=== PATIENT | female | born 1960 | race Caucasian/White ===

== ENCOUNTER → 2019-03-12 13:06 | Outpatient (BNVA) | payer OTHER, SELFPAY | PROVIDERS: Family Provider Family Medicine; PCP Family Medicine; Visit Provider Internal Medicine Rheumatology | DX: M06.09 Rheumatoid arthritis without rheumatoid factor, multiple sites (principal); Z79.52 Long term (current) use of systemic steroids; E11.9 Type 2 diabetes mellitus without complications; Z79.84 Long term (current) use of oral hypoglycemic drugs | CPT/HCPCS: 99214 ==

== ENCOUNTER → 2019-09-19 17:24 | Outpatient (BNVA) | payer OTHER, SELFPAY | PROVIDERS: Family Provider Family Medicine; PCP Family Medicine; Visit Provider Nurse Practitioner | DX: Z11.59 Encounter for screening for other viral diseases (principal); B34.9 Viral infection, unspecified; Z68.34 Body mass index [BMI] 34.0-34.9, adult | CPT/HCPCS: 87635 ==

== ENCOUNTER 2019-12-03 13:47 | Outpatient (CLI) | payer OTHER, SELFPAY ==
--- NOTE | 2019-12-03 14:22 | MM_ITS ---
WS: [id number] BILATERAL DIGITAL SCREENING MAMMOGRAPHY WITH CAD CLINICAL INFORMATION: SCREENING HISTORY: Screening mammogram. No current complaints. COMPARISON: 2018 TECHNIQUE: Bilateral CC and MLO views. FINDINGS: The breasts are composed of heterogeneous fibroglandular density tissue, which can limit the detectio n of small underlying mass lesions. No suspicious mass, asymmetry, calcifications, or architectural d istortion. No evidence of malignancy. A few tiny punctate calcifications. MM/[place] [id number] IMPRESSION: BI-RADS: 2-Benign FOLLOW UP: 1 Year Follow-up Recommend return to annual screening mammography.
== END 2019-12-03 13:48 | disposition home or self-care (01) ==
LOC: RADSHAW 13:52
PROVIDERS: PCP Family Medicine; Visit Provider Family Medicine
DX: Z12.31 Encounter for screening mammogram for malignant neoplasm of breast (principal)
CPT/HCPCS: 77067

== ENCOUNTER 2020-02-03 15:47 | Outpatient (CLI) | payer OTHER, SELFPAY ==
--- NOTE | 2020-02-03 15:58 | XR_ITS ---
WS: [id number] Bone mineral density performed on a [employer], 02/03/2020 Clinical data: [facility] SYSTEMIC STEROID USE, OVARIAN FAILURE COMPARISON STUDY: None. Findings: The first 4 lumbar vertebral bodies demonstrated the bone mineral density of 1.305 g/cm2 for a young adult T score of 1.0. Measurement of the left hip reveals a bone mineral density of 1.211 g/cm2 with a young adult T score of 1.6. Measurement of the right hip reveals the bone mineral density of 1.156 g/cm2 for young adult T score of 1.2. XR/XR DEXA axial skeleton* [id number] Impression: The bone mineral density of the lumbar spine and both hips is normal.
== END 2020-02-03 15:48 | disposition home or self-care (01) ==
LOC: RADWPI 15:50
PROVIDERS: PCP Family Medicine; Visit Provider Internal Medicine
DX: Z79.52 Long term (current) use of systemic steroids (principal); E28.39 Other primary ovarian failure
CPT/HCPCS: 77080

== ENCOUNTER 2020-06-26 14:46 | Outpatient (CLI) | payer OTHER, SELFPAY ==
--- NOTE | 2020-06-26 14:53 | XRR_ITS ---
PROCEDURE INFORMATION: Exam: XR Right Foot Exam date and time: 06/26/2020 3:19 PM Age: 60 years old Clinical indication: Foot; Right; Patient HX: No trauma pain at base of 2nd mtp joint since Friday; Additional info: R foot pain/attn: Base of 2nd mtp joint TECHNIQUE: Imaging protocol: XR Right foot. Views: 1 or 2 views. COMPARISON: CR Foot 3 views, RIGHT* [id number] 10/21/2016 3:45 PM FINDINGS: Bones/joints: Mild great toe bunion deformity with metatarsus varus and hallux valgus. Soft tissues: Soft tissue calcification in the region of the plantar fascia. XR/XR foot RT 2V [id number] IMPRESSION: 1. Mild great toe bunion deformity with metatarsus varus and hallux valgus. 2. Soft tissue calcification in the region of the plantar fascia.
== END 2020-06-26 14:47 | disposition home or self-care (01) ==
PROVIDERS: PCP Family Medicine; Visit Provider Family Medicine
DX: M79.671 Pain in right foot (principal); M21.611 Bunion of right foot
CPT/HCPCS: 73620

== ENCOUNTER → 2020-07-06 11:39 | Outpatient (BNVA) | payer OTHER, SELFPAY | PROVIDERS: PCP Family Medicine; Visit Provider Podiatrist Foot & Ankle Surgery | DX: E11.622 Type 2 diabetes mellitus with other skin ulcer; M79.673 Pain in unspecified foot; L97.521 Non-pressure chronic ulcer of other part of left foot limited to breakdown of skin; M20.41 Other hammer toe(s) (acquired), right foot; M20.42 Other hammer toe(s) (acquired), left foot | CPT/HCPCS: 73630 ==

== ENCOUNTER → 2020-07-21 09:02 | Outpatient (BNVA) | payer OTHER, SELFPAY | PROVIDERS: PCP Family Medicine; Visit Provider Podiatrist Foot & Ankle Surgery | DX: M79.671 Pain in right foot (principal); M21.611 Bunion of right foot; E11.622 Type 2 diabetes mellitus with other skin ulcer; L97.521 Non-pressure chronic ulcer of other part of left foot limited to breakdown of skin; M20.41 Other hammer toe(s) (acquired), right foot; M20.42 Other hammer toe(s) (acquired), left foot | CPT/HCPCS: 73630 ==

== ENCOUNTER → 2020-09-08 14:19 | Outpatient (BNVA) | payer OTHER, SELFPAY | PROVIDERS: PCP Family Medicine; Visit Provider Podiatrist Foot & Ankle Surgery | DX: M20.41 Other hammer toe(s) (acquired), right foot (principal); M20.42 Other hammer toe(s) (acquired), left foot; E11.622 Type 2 diabetes mellitus with other skin ulcer | CPT/HCPCS: 73630 ==

== ENCOUNTER 2020-12-08 11:08 | Outpatient (CLI) | payer OTHER, SELFPAY ==
--- NOTE | 2020-12-08 11:00 | MM_ITS ---
WS: [id number] BILATERAL DIGITAL SCREENING MAMMOGRAPHY WITH CAD CLINICAL INFORMATION: Z12.39 - Encounter for other screening for malignant neop.. HISTORY: Screening mammogram. No current complaints. COMPARISON: December 03, 2019 TECHNIQUE: Bilateral CC and MLO views. FINDINGS: The breasts are composed of heterogeneous fibroglandular density tissue, which can limit the detectio n of small underlying mass lesions. Ovoid nodular density mid left breast best seen on the cc view me asuring 6 mm. Recommend further evaluation with spot compression views and ultrasound. Right breast is unchanged. MM/[place] [id number] IMPRESSION: BI-RADS: 0-Incomplete: Need additional imaging evaluation FOLLOW UP: Need Additional Imaging Recommend left breast diagnostic mammography and ultrasound.
== END 2020-12-08 11:09 | disposition home or self-care (01) ==
LOC: RADSHAW 11:11
PROVIDERS: PCP Family Medicine; Visit Provider Nurse Practitioner Women's Health
DX: Z12.31 Encounter for screening mammogram for malignant neoplasm of breast (principal)
CPT/HCPCS: 77067

== ENCOUNTER → 2021-02-12 16:35 | Outpatient (BNVA) | payer OTHER, SELFPAY | PROVIDERS: PCP Family Medicine; Visit Provider Podiatrist Foot & Ankle Surgery | DX: M20.41 Other hammer toe(s) (acquired), right foot (principal); M20.42 Other hammer toe(s) (acquired), left foot; M21.619 Bunion of unspecified foot | CPT/HCPCS: 73630; 87635 ==

== ENCOUNTER 2021-02-16 06:31 | Day surgery (SDC) | payer OTHER, SELFPAY ==
[2021-02-15 12:26] VITALS: BMI 36.3
[2021-02-16] VITALS (10 sets, daily range): BP systolic 106–159; BP diastolic 57–81; PULSE 59–91; RESP 14–17; TEMP 36.2–36.6; O2SAT 94–98
--- NOTE | 2021-02-16 | SCC_ITS ---
Procedure Done: Right bunionectomy and Second Hammertoe Correction [address] and [id number] 2 seconds of fluoroscopic guidance, for a cumulative dose of 0.03 mGy, was provided to Dr. Hall by the radiology department. C-arm images of the RIGHT foot were saved for the patient's permanent record. [facility]
[2021-02-16] MEDS: sodium chloride 0.9% 1,000 ML 30 ML IV (07:08)
[2021-02-16 07:09] LABS: Glucose Point of Care 118 mg/dL (70-110)
--- NOTE | 2021-02-16 07:42 | ANES.PREANE2 ---
Pre-Anesthetic Assessment Pre-Anesthetic Assessment: Height/Weight: Height 1.68 m Weight 102.058 kg Temp Pulse Resp BP Pulse Ox 97.6 F 66 17 134/80 98 02/16/21 06:43 02/16/21 06:43 02/16/21 06:43 02/16/21 06:43 02/16/21 06:43 Preop Diagnosis: Right hammertoe and bunion Proposed Procedure: Operation Date: 02/16/21 07:55 Proposed Procedures p Right Second Hammertoe Correction 63834 M20.41 45612 M21.611(Right) - Marshall Hall DPM s With or Without Sesamoidectomy(Right) - Marshall Hall DPM s Hallux Valgus Bunionectomy(Right) - LEORA Gonzalez Metatarsal Osteotomy(Right) - Marshall Hall DPM Was Beta Aleksander taken within 24 hours: N/A Was Clonidine taken within 24 hours: N/A Last intake: Intake Last Liquid Date 02/15/21 Last Liquid Time 21:00 Last Solid Date 02/16/21 Last Solid Time 21:00 Social: Social History: No alcohol and No tobacco Exam: Pre-Anes Outpt Exam: alert, oriented x 3, clear to auscultation bilaterally and regular rate & rhythm Airway: Submandibular: WNL Cervical ROM: WNL MP: 2 Dentition: Full Pulmonary: Pulmonary: Sleep apnea CV/HEM: CV/HEM: HTN Metabolic: Metabolic: DM and Morbid obesity Musc/skel: Musc/skel: RA Anesthetic Plan: ASA status: 3 Anesthesia: Choice Risk of > 500 ml blood loss (7ml/kg in children): No Meds/Allergies Current Medications: Current Medications Generic Name Dose Route Start Last Admin Trade Name Freq PRN Reason Stop Dose Admin Sodium Chloride 1,000 mls @ 30 ml s/hr 02/16/21 06:45 02/16/21 07:08 Sodium Chloride 0.9% IV 02/17/21 06:44 30 mls/hr .Q24H RICHARD Administration PFSH Anesthesia PFSH: Medical History Diabetes mellitus type 2, controlled 5.6% A1c; [place] History of 2019 novel coronavirus disease (COVID-19) (~09/2019) Peripheral neuropathy Seronegative rheumatoid arthritis of multiple sites Sleep apnea Surgical History H/O foot surgery H/O: hysterectomy (~1991) Anterior and Posterior vaginal repair with Hysterectomy. Preformed [facility] Dr. Wallace at [facility] in [place], [place] History of bladder surgery (~2011) Performed by Dr. Kenrick Dolan (Bladder sling) Dr. Rodriguez performed removed gallbladder Hx of carpal tunnel repair Hx of cholecystectomy (~2011) Hx of vaginal surgery (~2013) Vaginal reconstruction, Preformed by Dr. Kelly at [facility] in [place], [place]. Skin graft from stomach to reconstruct vagina Status post colonoscopy with polypectomy Family History Father Hypertension Family/Other Diabetes Paternal aunt Cancer maternal aunts and cousin with breast cancer Maternal cousins with colon cancer Denies family history of CAD (coronary artery disease) Clotting disorder Dementia Hyperlipidemia Psychiatric illness Chronic kidney disease (CKD) Suicide Anesthesia complication Bleeding disorder Family history of premature coronary artery disease Lung disease Stroke Social History Alcohol intake: current Alcohol intake frequency: holidays/special occasions only Marital status: Number of children: 2 History of recent travel: No Additional social history: - Tobacco use: Former; socially smoked as teenager Alcohol use: Rare Drug use: Denies Data Anesthesia Other Labs: Laboratory Results - last 48 hr 02/16/21 07:05 POC Glucose 118 H Cardiac Studies: No Data to Display
--- NOTE | 2021-02-16 08:46 | W.PM.OPSUD ---
Surgery/Procedure H&P Update DATE OF PROCEDURE: February 16, 2021 DATE H&P PERFORMED: 02/12/21 H&P UPDATE INFORMATION: I have reviewed H&P completed within last 30 days, I have examined patient prior to procedure, No changes to prior documentation and H&P is in [facility] EMR on date indicated PREOP DIAGNOSIS: Right hammertoe and bunion PLANNED PROCEDURE: Operation Date: 02/16/21 07:55 Proposed Procedures p Right Second Hammertoe Correction 22517 M20.41 53295 M21.611(Right) - Marshall Hall DPM s With or Without Sesamoidectomy(Right) - LEORA Gonzalez Hallux Valgus Bunionectomy(Right) - LEORA Gonzalez Metatarsal Osteotomy(Right) - Marshall Hall DPM
[2021-02-16] MEDS: lidocaine 1% INJ 20 mL 15 ML XX (09:36)
--- NOTE | 2021-02-16 10:21 | P.OP_ITS ---
Operative Report Date of procedure: February 16, 2021 Pre-op Diagnosis: Right hammertoe and bunion Post-op diagnosis: same Post-op Findings: Same Procedure Done: Right bunionectomy and Second Hammertoe Correction 13384 and [id number] Implants: [place] 28 2.75 mm hammer tube 0 degree, [place] 28 3 mm headed screw by 26, 3-0 Vicryl, 4-0 Vicryl, 4-0 nylon Specimens removed/disposition: noned Pathology: none sent Surgeon: Marshall Hall D.P.M. Oceanographer Geological: Shereen Anesthesia: MAC Estimated blood loss: 5 Tourniquet time: 50 IV fluids: 0 Urine output: 0 Complications: none Condition: stable Disposition: PACU Brief History: Patient requesting hammertoe correction and bunionectomy to her right foot. Her second hammertoe is nonreducible and is no longer fitting even in diabetic shoes with extra-depth as the knuckle is very proud, has had history of infection and skin breakdown and need for antibiotic therapy as well as wound care. She is wishing to have this corrected to potentially prevent future wounds also complains of rubbing and irritation at the bunion deformity with wide accommodative shoes like that this correct as well as it has pain on a regular basis, has pain daily with everyday activities. Risks include pain, bleeding, numbness, infection, failure, hardware rotation, delayed union, malunion, nonunion, need for further surgical intervention. Also risk for deep vein thrombosis, pulmonary embolism, heart attack, stroke and . Procedure: Under mild sedation the patient was brought to the operating room and remained on the gurney in supine position. A timeout was performed. Anesthesia was then administered by the anesthesia service. Local anesthetic injected by myself consisting of 30 cc of one-to-one mixture 1% lidocaine and 0.5% Marcaine plain in a right Rondon block and second ray block fashion. Well-padded pneumatic tourniquet applied to the right ankle. Right lower extremity was then scrubbed, prepped and draped utilizing normal aseptic technique. Right foot was exsanguinated with an Esmarch bandage and a tourniquet inflated to 250 mmHg. Attention was directed to the dorsal medial aspect of the right first metatar sophalangeal joint where a linear longitudinal incision was made with a #15 blade medial and parallel to the extensor houses longus tendon. Dissection was carried down to the joint capsule utilizing combination of blunt and sharp technique. Care was taken to retract and preserve neurovascular and tendinous structures. All bleeders were ligated and cauterized as necessary. Linear capsulotomy was performed in the dorsal medial eminence of the first metatarsal head was transected followed by a chevron type osteotomy with apex pointed distally the head of the first metatarsal was shifted laterally in a more anatomically correct position and fixated utilizing a [place] 28 3 mm headed screw with excellent bony apposition and compression noted. Remaining medial shelf was transected and passed from operative field as well as all rough edges being smoothed. Range of motion was smooth at the first metatarsophalangeal joint and improved position appreciated. Lateral release was then performed. Incision was flushed with saline solution, medial capsule was debulked and closed with 3-0 Vicryl, subcutaneous tissue closed with 4-0 Vicryl and skin closed with 4-0 nylon. Attention was then directed to the right second toe where a linear longitudinal incision was made directly over the proximal interphalangeal joint with a #15 blade the extensor tendon was then transected dissection was carried down to the joint utilizing care to protect neurovascular structures all bleeders were ligated and cauterized as necessary. Transverse capsulotomy was performed in the head of the proximal phalanx and the base of the middle phalanx were transected utilizing a sagittal saw. Incision was flushed with statin solution followed by intramedullary fixation utilizing a hammer tube 2.75 mm x 0 degrees with excellent bony apposition and compression noted and alignment of the rectus of the second toe. Incision was flushed with saline solution. Extensor tendon reapproximated utilizing 4-0 Vicryl and skin closed with 4-0 nylon. Exparel 10 mL expanded with an additional 10 mL of Marcaine was injected at the operative site per counter stitcher recommendation and technique. Incisions were then dressed with Adaptic, sterile 4 x 4, Kerlix and Delonte wrap. Cam boot was then applied and tourniquet was deflated with the right lower extremity. A prompt hyperemic response was noted to the distal digits of the right foot. Patient tolerated the procedure and anesthesia well and was transferred to the PACU with vital signs stable and vascular status intact. Following a period of postoperative monitoring she will be discharged home.
--- NOTE | 2021-02-16 10:26 | XR_ITS ---
WS: [id number] XR foot RT min 3V* [id number] REASON FOR EXAM: post op FINDINGS: Osteotomy of the distal first metatarsal with screw fixation. Arthrodesis of the PIP joint of the second toe. Surgical appliances and associated bone structure in proper position and alignment. No other interval change compared to the preoperative examination of 02/12/2021. XR/XR foot RT min 3V* [id number] IMPRESSION: Postoperative right foot as above.
--- NOTE | 2021-02-16 10:38 | SUR.PHASEI ---
x ray done .patient denies pain.
[2021-02-16] MEDS: HYDROcodone-acetaminophen 10-325 mg Tablet 1 TAB PO (11:18)
--- NOTE | 2021-02-16 13:17 | ANE.PACU2 ---
Inpatient post-anesthesia follow up: Airway intact: Yes Vital signs: Temperature 97.6 F Pulse Rate 64 Respiratory Rate 16 Blood Pressure 159/81 Pulse Oximetry 95 Oxygen Delivery Me thod Room Air Oxygen Flow Rate Fraction of Inspir ed Oxygen Hydration adequate: Yes Nausea and vomiting: No Pain level: 1 Mental status: Baseline
== END 2021-02-16 11:49 | disposition home or self-care (01) ==
PROVIDERS: PCP Family Medicine; Visit Provider Podiatrist Foot & Ankle Surgery
PROC: (CPT 28285; principal; 2021-02-16 07:55)
PROC: (CPT 28296; 2021-02-16 07:55)
DX: M20.41 Other hammer toe(s) (acquired), right foot (principal); M21.611 Bunion of right foot; I10 Essential (primary) hypertension; E66.01 Morbid (severe) obesity due to excess calories; E11.42 Type 2 diabetes mellitus with diabetic polyneuropathy; Z68.36 Body mass index [BMI] 36.0-36.9, adult; M06.9 Rheumatoid arthritis, unspecified; G47.30 Sleep apnea, unspecified; Z79.82 Long term (current) use of aspirin
CPT/HCPCS: 28285; 28296; 36416; 73630; 76000; 82962; 96365; C1713; J0690; J2704; J3010; J3490; J7030

== ENCOUNTER → 2021-02-28 13:58 | Outpatient (BNVA) | payer OTHER, SELFPAY | PROVIDERS: PCP Family Medicine; Visit Provider Podiatrist Foot & Ankle Surgery | DX: Z98.890 Other specified postprocedural states (principal) | CPT/HCPCS: 73630 ==

== ENCOUNTER 2021-02-28 15:37 | Outpatient (CLI) | payer OTHER, SELFPAY | END 2021-02-28 15:38 | disposition home or self-care (01) | LOC: SPT 15:40 | PROVIDERS: PCP Family Medicine; Visit Provider Podiatrist Foot & Ankle Surgery | DX: Z98.890 Other specified postprocedural states (principal) | CPT/HCPCS: 97760; L3100 ==

== ENCOUNTER → 2021-03-16 11:47 | Outpatient (BNVA) | payer OTHER, SELFPAY | PROVIDERS: PCP Family Medicine; Visit Provider Podiatrist Foot & Ankle Surgery | DX: Z98.890 Other specified postprocedural states (principal) | CPT/HCPCS: 73630 ==

== ENCOUNTER → 2021-03-30 14:16 | Outpatient (BNVA) | payer OTHER, SELFPAY | PROVIDERS: PCP Family Medicine; Visit Provider Podiatrist Foot & Ankle Surgery | DX: Z98.890 Other specified postprocedural states (principal) | CPT/HCPCS: 73630 ==

== ENCOUNTER → 2021-05-18 15:37 | Outpatient (BNVA) | payer OTHER, SELFPAY | PROVIDERS: PCP Family Medicine; Visit Provider Podiatrist Foot & Ankle Surgery | DX: Z98.890 Other specified postprocedural states (principal) | CPT/HCPCS: 73630 ==

== ENCOUNTER → 2021-07-19 16:03 | Outpatient (BNVA) | payer OTHER, SELFPAY | PROVIDERS: PCP Family Medicine; Visit Provider Podiatrist Foot & Ankle Surgery | DX: Z98.890 Other specified postprocedural states (principal) | CPT/HCPCS: 73630 ==

== ENCOUNTER 2021-08-23 13:48 | Outpatient (CLI) | payer OTHER, SELFPAY ==
--- NOTE | 2021-08-23 14:03 | MM_ITS ---
WS: [id number] LEFT 3D TOMOSYNTHESIS DIGITAL MAMMOGRAPHY WITH CAD CLINICAL INFORMATION: ABNORMAL MAMMOGRAM COMPARISON: Outside examination January 12, 2021 and prior examination December 08, 2020 and 0 TECHNIQUE: 3 views of the left breast were obtained. FINDINGS: The left breast is composed of heterogeneous fibroglandular density tissue, which can limit the detec tion of small underlying mass lesions. Scattered incidental punctate calcifications. Again seen is th e 6 mm ovoid nodular density mid depth LEFT breast best seen on the cc view. This is similar in appea lashanda to December 08, 2020. Ultrasound is pending. ULTRASOUND BREAST LEFT TECHNIQUE: Ultrasound left breast focused area of concern. CLINICAL INFORMATION: ABNORMAL MAMMOGRAM COMPARISON: January 12, 2021 FINDINGS: Ultrasound LEFT breast in the area of concern at the 200 and 3:00 position. There is a hypoechoic ovo id nodule measuring 9.1 x 5.1 x 10 mm which likely corresponds to the mammographic findings. Small am ount of internal vascularity. This lesion demonstrates low level internal echogenicity suspicious for a solid lesion. Recommend further evaluation with ultrasound-guided biopsy. MM/[place] [id number] IMPRESSION: BI-RADS: 4-Suspicious Finding-Biopsy Should Be Considered FOLLOW UP: US Guided Biopsy Recommended RECOMMEND ULTRASOUND-GUIDED BIOPSY OF THE LEFT BREAST LESION.
== END 2021-08-23 13:49 | disposition home or self-care (01) ==
LOC: RAD 13:50
PROVIDERS: PCP Family Medicine; Visit Provider Surgery
DX: R92.8 Other abnormal and inconclusive findings on diagnostic imaging of breast (principal); R92.1 Mammographic calcification found on diagnostic imaging of breast
CPT/HCPCS: 76642; 77061

== ENCOUNTER 2021-09-13 07:48 | Outpatient (CLI) | payer OTHER, SELFPAY ==
--- NOTE | 2021-09-13 08:04 | US_ITS ---
WS: [id number] ULTRASOUND-GUIDED LEFT BREAST BIOPSY CLINICAL INFORMATION: R92.8 - Other abnormal and inconclusive findings on diagn... FINDINGS: The procedure including risks, benefits, and complications were discussed with the patient who agreed to proceed. Using sterile technique patient was prepped and draped in the usual sterile fashion. Aft er 1% lidocaine utilizing real-time ultrasound guidance 5 14-gauge cores were obtained of the LEFT br east lesion at the 3 o'clock position. Subsequently a titanium clip was placed in the biopsy cavity. No immediate complications. Pathology demonstrates A. Breast, left breast mass , ultrasound-guided biopsy: - Benign fibrocystic disease with apocrine metaplasia and stromal sclerosis. - No malignancy identified. US/[place] [id number] IMPRESSION: 1. Uncomplicated ultrasound-guided LEFT breast biopsy. 2. The pathology demonstrates benign fibrocystic disease. No malignancy identi fied. BI-RADS: 2-Benign FOLLOW UP: 1 Year Follow-up
== END 2021-09-13 07:49 | disposition home or self-care (01) ==
PROVIDERS: PCP Family Medicine; Visit Provider Nurse Practitioner Women's Health
DX: R92.8 Other abnormal and inconclusive findings on diagnostic imaging of breast (principal); N60.12 Diffuse cystic mastopathy of left breast
CPT/HCPCS: 19083; 88305

== ENCOUNTER → 2022-02-07 14:54 | Outpatient (BNVA) | payer OTHER, SELFPAY | PROVIDERS: PCP Family Medicine; Visit Provider Family Medicine | DX: L02.91 Cutaneous abscess, unspecified (principal) | CPT/HCPCS: 87070; 87075; 87205 ==

== ENCOUNTER → 2022-07-11 13:53 | Outpatient (BNVA) | payer OTHER, SELFPAY | PROVIDERS: PCP Family Medicine; Visit Provider Podiatrist Foot & Ankle Surgery | DX: M20.41 Other hammer toe(s) (acquired), right foot (principal); M20.42 Other hammer toe(s) (acquired), left foot; E11.8 Type 2 diabetes mellitus with unspecified complications | CPT/HCPCS: 99213 ==

== ENCOUNTER 2022-07-26 08:12 | Day surgery (SDC) | payer OTHER, SELFPAY ==
[2022-07-25 08:29] VITALS: BMI 37.1
[2022-07-26 09:08] VITALS: BP 123/61; PULSE 62; RESP 16; TEMP 36.1; O2SAT 98
[2022-07-26] MEDS: sodium chloride 0.9% 1,000 ML 30 ML IV (09:15)
[2022-07-26 09:23] LABS: Glucose Point of Care 150 mg/dL (70-110)
--- NOTE | 2022-07-26 10:52 | ANES.PREANE2 ---
Pre-Anesthetic Assessment Height/Weight: Height 1.68 m Weight 104.326 kg Temp Pulse Resp BP Pulse Ox O2 Del Method 97.0 F L 62 16 123/61 98 Room Air 07/26/22 09:08 07/26/22 09:08 07/26/22 09:08 07/26/22 09:08 07/26/22 09:08 07/26/22 09:08 Preop Diagnosis: Screening Operation Date: 07/26/22 10:15 Proposed Procedures p 22469 Colon Z12.11(Not Applicable) - Leandro Kent DO Familial anesthetic complications: Woke up during hysterectomy and catrpal tunnel Was Beta Aleksander taken within 24 hours: N/A Was Clonidine taken within 24 hours: N/A Last intake: Intake Last Liquid Date 07/25/22 Last Liquid Time 22:00 Last Solid Date 07/24/22 Last Solid Time 18:00 Social No alcohol and No tobacco Exam alert, oriented x 3, clear to auscultation bilaterally and regular rate & rhythm Airway Submandibular: within normal limits Cervical ROM: within normal limits Mallampati: Class II Dentition: chipped History/ROS No significant history except as noted Pulmonary Sleep Apnea CV/HEM Murmur and None reported None reported Hepatic None reported GI Gastroesophageal Reflux Disease (none this am) Metabolic Diabetes Mellitus and Morbid Obesity [facility] [place] Rheumatoid Arthritis Neuropsych Anxiety and Neuropathy Anesthetic Plan ASA status: 3 Anesthesia: Anesthesia Evaluation, General and MAC Risk of > 500 ml blood loss (7ml/kg in children): No Medications/Allergies Home Medications Medication Instructions Recorded Confirmed Last Taken Type cetirizine 10 mg tablet (Zyrtec) 10 mg PO DAILY 03/12/19 07/26/22 07/25/22 History mcynmvnb-ejq-srdq-FA-Ca carb-vit K 1 tab PO DAILY 03/12/19 07/26/22 02/15/21 10:00 History 18 mg iron-400 mcg-500 mg tablet (Women's Multivitamin) Diabetic Shoes #1 ea 03/16/19 07/25/22 07/25/22 Rx folic acid 1 mg tablet 1 mg PO DAILY #90 tabs 07/06/19 07/26/22 07/25/22 Rx aspirin 81 mg tablet,delayed 81 mg PO .three times weeks 10/29/19 07/26/22 02/14/21 History release (Adult Low Dose Aspirin) Diabetic shoes with 3 pairs of #1 ea 07/06/20 07/25/22 07/25/22 Rx inserts upadacitinib 15 mg tablet,extended 15 mg PO DAILY 11/03/20 07/26/22 07/25/22 History release 24 hr (Rinvoq) methotrexate sodium 2.5 mg tablet 20 mg PO .Q7days 05/18/21 07/26/22 07/24/22 History furosemide 40 mg tablet (Lasix) 40 mg PO PRN PRN swelling 09/07/21 07/26/22 07/23/22 History potassium chloride 10 mEq 10 meq PO PRN PRN with lasix 09/07/21 07/26/22 07/23/22 History tablet,extended release triamterene 37.5 1 tab PO DAILY 09/07/21 07/26/22 07/25/22 History mg-hydrochlorothiazide 25 mg tablet estradiol 0.01% (0.1 mg/gram) 1 g vaginal .three times a week 11/09/21 07/26/22 Unknown Rx vaginal cream (Estrace) #127.5 grams estradiol 1 mg tablet 1.5 mg PO DAILY #135 tabs 11/09/21 07/26/22 07/25/22 Rx glimepiride 4 mg tablet 4 mg PO BID #180 tabs 12/07/21 07/26/22 07/25/22 Rx gabapentin 100 mg capsule 100 mg PO TID PRN neuropathy pain 04/10/22 07/26/22 Unknown Rx 30 days #90 caps buspirone 30 mg tablet 30 mg PO BID #180 tabs 05/23/22 07/26/22 07/26/22 Rx Saccharomyces boulardii [Daily 1 cap PO DAILY 06/20/22 07/26/22 07/25/22 History Probiotic (S. boulardii)] metoclopramide HCl 10 mg tablet 10 mg PO BID 06/20/22 07/26/22 07/25/22 History Allergies Allergy/AdvReac Type Severity Reaction Status Date / Time codeine Allergy nausea Verified 07/26/22 09:03 metformin Allergy severe Verified 07/26/22 09:03 stomach issues pioglitazone [From Actos] Allergy swelling/ Verified 07/26/22 09:03 fatigue canagliflozin [From Invokana] AdvReac Severe yeast Verified 07/26/22 09:03 infection Current Medications Generic Name Dose Route Start Last Admin Trade Name Freq PRN Reason Stop Dose Admin Sodium Chloride 1,000 mls @ 30 mls/hr 07/26/22 08:30 07/26/22 09:15 Sodium Chloride 0.9% IV 07/27/22 08:29 30 mls/hr .Q24H RICHARD Administration PFSH Anesthesia Medical History Anxiety Diabetes mellitus type 2, controlled 6.5% A1c; [place] Edema GERD (gastroesophageal reflux disease) Heart murmur History of 2019 novel coronavirus disease (COVID-19) (~09/2019) Hyperlipemia Hypertension Neuropathy No pertinent past medical history neghx: htn,thyroid,dvt/pe PCP: Dr. Alberto Peripheral neuropathy Seronegative rheumatoid arthritis of multiple sites Sleep apnea Surgical History H/O foot surgery H/O: hysterectomy (~1991) Anterior and Posterior vaginal repair with Hysterectomy. Preformed by Dr. Wallace at [facility] in [place], [place]. History of bladder surgery (~2011) Performed by Dr. Kenrick Dolan (Bladder sling) Dr. Rodriguez performed removed gallbladder History of bunionectomy (~2020) R foot, hammer toe reopair Hx of carpal tunnel repair Hx of cholecystectomy (~2011) Hx of vaginal surgery (~2013) Vaginal reconstruction, Preformed by Dr. Kelly at [facility] in [place], [place]. Skin graft from stomach to reconstruct vagina Status post colonoscopy with polypectomy Family History Father Hypertension Family/Other Diabetes Paternal aunt Breast cancer Maternal Aunt x1--- dx age unknown Maternal cousin-- dx age 30's Colon cancer Maternal cousin dx age unknown Other Cancer Denies family history of Ovarian cancer Hyperlipidemia Uterine cancer Stroke Social History Smoking and tobacco status: former smoker Substance/Drug Use: never Data Anesthesia Cardiac Studies: No Data to Display
--- NOTE | 2022-07-26 10:56 | P.HP_ITS ---
Providers/Chief Complaint Primary Care Provider: Tyler Alberto MD Chief Complaint: Z12.11 History of Present Illness Felecia Molina is a 62 year old female here for screening colonoscopy. Her last colonoscopy was in 2009 and no polyps were seen at that time. She reports that she has irritable bowel syndrome and sometimes can alternate from diarrhea to constipation. Otherwise she denies any family history of colon cancer, ab dominal pain, nausea, emesis, hematochezia and/or melena. Medications/Allergies Home Medications Medication Instructions Recorded Confirmed Last Taken Type cetirizine 10 mg tablet (Zyrtec) 10 mg PO DAILY 03/12/19 07/26/22 07/25/22 History bdewxodp-[id number]-fgyl-FA-Ca carb-vit K 1 tab PO DAILY 03/12/19 07/26/22 02/15/21 10:00 History 18 mg iron-400 mcg-500 mg tablet (Women's Multivitamin) Diabetic Shoes #1 ea 03/16/19 07/25/22 07/25/22 Rx folic acid 1 mg tablet 1 mg PO DAILY #90 tabs 07/06/19 07/26/22 07/25/22 Rx aspirin 81 mg tablet,delayed 81 mg PO .three times weeks 10/29/19 07/26/22 02/14/21 History release (Adult Low Dose Aspirin) Diabetic shoes with 3 pairs of #1 ea 07/06/20 07/25/22 07/25/22 Rx inserts upadacitinib 15 mg tablet,extended 15 mg PO DAILY 11/03/20 07/26/22 07/25/22 History release 24 hr (Rinvoq) methotrexate sodium 2.5 mg tablet 20 mg PO .Q7days 05/18/21 07/26/22 07/24/22 History furosemide 40 mg tablet (Lasix) 40 mg PO PRN PRN swelling 09/07/21 07/26/22 07/23/22 History potassium chloride 10 mEq 10 meq PO PRN PRN with lasix 09/07/21 07/26/22 0 07/23/22 History tablet,extended release triamterene 37.5 1 tab PO DAILY 09/07/21 07/26/22 07/25/22 History mg-hydrochlorothiazide 25 mg tablet estradiol 0.01% (0.1 mg/gram) 1 g vaginal .three times a week 11/09/21 07/26/22 Unknown Rx vaginal cream (Estrace) #127.5 grams estradiol 1 mg tablet 1.5 mg PO DAILY #135 tabs 11/09/21 07/26/22 07/25/22 Rx glimepiride 4 mg tablet 4 mg PO BID #180 tabs 12/07/21 07/26/22 07/25/22 Rx gabapentin 100 mg capsule 100 mg PO TID PRN neuropathy pain 04/10/22 07/26/22 Unknown Rx 30 days #90 caps buspirone 30 mg tablet 30 mg PO BID #180 tabs 05/23/22 07/26/22 07/26/22 Rx Saccharomyces boulardii [Daily 1 cap PO DAILY 06/20/22 07/26/22 07/25/22 History Probiotic (S. boulardii)] metoclopramide HCl 10 mg tablet 10 mg PO BID 06/20/22 07/26/22 07/25/22 History Allergies Allergy/AdvReac Type Severity Reaction Status Date / Time codeine Allergy nausea Verified 07/26/22 09:03 metformin Allergy severe Verified 07/26/22 09:03 stomach issues pioglitazone [From Actos] Allergy swelling/ Verified 07/26/22 09:03 fatigue canagliflozin [From Invokana] AdvReac Severe yeast Verified 07/26/22 09:03 infection PFSH Acute PFSH: Medical History Anxiety Diabetes mellitus type 2, controlled 6.5% A1c; spurling Edema GERD (gastroesophageal reflux disease) Heart murmur History of 2019 novel coronavirus disease (COVID-19) (~09/2019) Hyperlipemia Hypertension Neuropathy No pertinent past medical history neghx: htn,thyroid,dvt/pe PCP: Dr. Alberto Peripheral neuropathy Seronegative rheumatoid arthritis of multiple sites Sleep apnea Surgical History H/O foot surgery H/O: hysterectomy (~1991) Anterior and Posterior vaginal repair with Hysterectomy. Preformed by Dr. Wallace at [facility] in [place], [place]. History of bladder surgery (~2011) Performed by Dr. Kenrick Dolan (Bladder sling) Dr. Rodriguez performed removed gallbladder History of bunionectomy (~2020) R foot, hammer toe reopair Hx of carpal tunnel repair Hx of cholecystectomy (~2011) Hx of vaginal surgery (~2013) Vaginal reconstruction, Preformed by Dr. Kelly at [facility] in [place], [place]. Skin graft from stomach to reconstruct vagina Status post colonoscopy with polypectomy Family History Father Hypertension Family/Other Diabetes Paternal aunt Breast cancer Maternal Aunt x1--- dx age unknown Maternal cousin-- dx age 30's Colon cancer Maternal cousin dx age unknown Other Cancer Denies family history of Ovarian cancer Hyperlipidemia Uterine cancer Stroke Social History Smoking and tobacco status: former smoker Substance/Drug Use: never Vitals/I&O/Wt Last Vital Signs Temp 97.0 F L 07/26/22 09:08 Pulse 62 07/26/22 09:08 Resp 16 07/26/22 09:08 BP 123/61 07/26/22 09:08 Pulse Ox 98 07/26/22 09:08 O2 Del Method Room Air 07/26/22 09:08 Weight last 48 hrs Weight 230 lb A&P Assessment and plan (1) Colon cancer screening: Plan Screening colonoscopy The risks and benefits of the procedure, including bleeding, infection, intestinal perforation requiring surgery, missed lesion were explained to the patient. The patient is understanding of the risks and wishes to proceed. Attestations Medical Necessity Statement*: Home Coding Level of Care Code Acute Code for Chg Fwd Diagnoses Colon cancer screening Z12.11
[2022-07-26 11:16] VITALS: BP 110/71; PULSE 71; RESP 16; TEMP 36.1; O2SAT 95
[2022-07-26 11:30] VITALS: BP 114/66; PULSE 67; RESP 18; O2SAT 94
--- NOTE | 2022-07-26 14:22 | ANE.PACU2 ---
Inpatient post-anesthesia follow up: Airway intact: Yes Vital signs: Temperature 97 F Pulse Rate 67 Respiratory Rate 18 Blood Pressure 114/66 Pulse Oximetry 94 Oxygen Delivery Me thod Room Air Oxygen Flow Rate Fraction of Inspir ed Oxygen Hydration adequate: Yes Nausea and vomiting: No Pain level: 2 Mental status: Baseline
== END 2022-07-26 11:41 | disposition home or self-care (01) ==
PROVIDERS: PCP Family Medicine; Visit Provider Surgery
PROC: 0DJD8ZZ Inspection of Lower Intestinal Tract, Via Natural or Artificial Opening Endoscopic (ICD-10-PCS; CPT 45378; principal; 2022-07-26 10:15)
DX: Z12.11 Encounter for screening for malignant neoplasm of colon (principal); K63.5 Polyp of colon; Z87.891 Personal history of nicotine dependence; E11.42 Type 2 diabetes mellitus with diabetic polyneuropathy; K21.9 Gastro-esophageal reflux disease without esophagitis; E78.5 Hyperlipidemia, unspecified; F41.9 Anxiety disorder, unspecified; G47.30 Sleep apnea, unspecified; E66.01 Morbid (severe) obesity due to excess calories; Z68.37 Body mass index [BMI] 37.0-37.9, adult; M06.0A Rheumatoid arthritis without rheumatoid factor, other specified site; Z79.85 Long-term (current) use of injectable non-insulin antidiabetic drugs; Z79.82 Long term (current) use of aspirin
CPT/HCPCS: 36416; 45385; 82962; 88305; J2704; J7030

== ENCOUNTER → 2022-08-15 15:17 | Outpatient (BNVA) | payer OTHER, SELFPAY | PROVIDERS: PCP Family Medicine; Visit Provider Surgery | DX: K63.5 Polyp of colon (principal); R19.8 Other specified symptoms and signs involving the digestive system and abdomen | CPT/HCPCS: 99213 ==

== ENCOUNTER → 2022-09-12 14:17 | Outpatient (BNVA) | payer OTHER, SELFPAY | PROVIDERS: PCP Family Medicine; Visit Provider Podiatrist Foot & Ankle Surgery | DX: M20.41 Other hammer toe(s) (acquired), right foot (principal); M20.42 Other hammer toe(s) (acquired), left foot; E11.622 Type 2 diabetes mellitus with other skin ulcer | CPT/HCPCS: 99213 ==

== ENCOUNTER 2022-11-11 12:53 | Outpatient (CLI) | payer OTHER, SELFPAY ==
--- NOTE | 2022-11-11 13:03 | MM_ITS ---
WS: [id number] BILATERAL 3D TOMOSYNTHESIS DIGITAL SCREENING MAMMOGRAPHY WITH CAD CLINICAL INFORMATION: SCREENING HISTORY: Screening mammogram. No current complaints. COMPARISON: 2021 TECHNIQUE: Bilateral CC and MLO views. FINDINGS: The breasts are composed of heterogeneous fibroglandular density tissue, which can limit the detectio n of small underlying mass lesions. No suspicious mass, asymmetry, calcifications, or architectural d istortion. No evidence of malignancy. Incidental punctate calcifications. Biopsy clip LEFT breast IMPRESSION: MM/[place] [id number] BI-RADS: 2-Benign FOLLOW UP: 1 Year Follow-up Recommend return to annual screening mammography.
== END 2022-11-11 12:54 | disposition home or self-care (01) ==
PROVIDERS: PCP Family Medicine; Visit Provider Nurse Practitioner Women's Health
DX: Z12.31 Encounter for screening mammogram for malignant neoplasm of breast (principal)
CPT/HCPCS: 77063; 77067

== ENCOUNTER → 2022-11-14 14:25 | Outpatient (BNVA) | payer OTHER, SELFPAY | PROVIDERS: PCP Family Medicine; Visit Provider Podiatrist Foot & Ankle Surgery | DX: E11.622 Type 2 diabetes mellitus with other skin ulcer (principal); M20.41 Other hammer toe(s) (acquired), right foot; M20.42 Other hammer toe(s) (acquired), left foot; L60.3 Nail dystrophy | CPT/HCPCS: 11721; 99213 ==

== ENCOUNTER 2022-12-09 13:18 | Outpatient (CLI) | payer OTHER, SELFPAY ==
--- NOTE | 2022-12-09 13:30 | XR_ITS ---
WS: [id number] DEXA (DUAL ENERGY X-RAY ABSORPTIOMETRY) Bone mineral density was performed using a travayl machine. HISTORY: Z78.0 - Asymptomatic menopausal state COMPARISON: 02/03/2020 Lumbar spine BMD (L1-L4): 1.314 g/cm2 T score: 1.1 Z score: 1.4 Total hip BMD: Left: 1.135 g/cm2. T score: 1.0 Z score: 1.3 Right: 1.137 g/cm2. T score: 1.0 Z score: 1.3 10 year probability of a major osteoporotic fracture is 12.0%. Compared to the prior study from 02/03/2020. Lumbar spine bone mineral density has increased by 0.7%. Bilateral hips bone mineral density has decreased by 4.0%. IMPRESSION: NORMAL BONE MINERAL DENSITY based upon the WHO classification for females. Significant decrease in bone mineral density within the hips since the prior study.
== END 2022-12-09 13:19 | disposition home or self-care (01) ==
PROVIDERS: PCP Family Medicine; Visit Provider Nurse Practitioner Women's Health
DX: Z13.820 Encounter for screening for osteoporosis (principal); Z78.0 Asymptomatic menopausal state
CPT/HCPCS: 77080

== ENCOUNTER → 2023-02-18 11:17 | Outpatient (BNVA) | payer OTHER, SELFPAY | PROVIDERS: PCP Family Medicine; Visit Provider Podiatrist Foot & Ankle Surgery | DX: M20.41 Other hammer toe(s) (acquired), right foot; M20.42 Other hammer toe(s) (acquired), left foot; I73.9 Peripheral vascular disease, unspecified; E11.69 Type 2 diabetes mellitus with other specified complication | CPT/HCPCS: 99213 ==

== ENCOUNTER 2023-04-17 09:33 | Outpatient (CLI) | payer OTHER, SELFPAY ==
--- NOTE | 2023-04-17 10:00 | US_ITS ---
WS: [id number] RIGHT UPPER QUADRANT ULTRASOUND HISTORY: elevated lfts COMPARISON: None available. Liver: 20.2 cm in length. Enlarged heterogeneous liver. No mass is identified and no bile duct dilata tion. Portal Vein: Normal hepatopetal flow with monophasic waveform. Gallbladder: Cholecystectomy. CBD: 0.6 cm Pancreas: Completely obscured. Right kidney: 11.3 cm in length. Normal size and echogenicity. No hydronephrosis or mass. Aorta and IVC: Mild atherosclerosis. No aneurysm. No ascites. IMPRESSION: 1. Moderately enlarged liver with hepatic steatosis. Coarse echotexture throughout the liver. No mas s. 2. Prior cholecystectomy. 3. No bile duct dilatation.
== END 2023-04-17 09:34 | disposition home or self-care (01) ==
LOC: RAD 09:34
PROVIDERS: PCP Family Medicine; Visit Provider Family Medicine
DX: R79.89 Other specified abnormal findings of blood chemistry (principal); K76.0 Fatty (change of) liver, not elsewhere classified; R16.0 Hepatomegaly, not elsewhere classified; Z90.49 Acquired absence of other specified parts of digestive tract
CPT/HCPCS: 76705

== ENCOUNTER → 2023-06-03 13:06 | Outpatient (BNVA) | payer OTHER, SELFPAY | PROVIDERS: PCP Family Medicine; Visit Provider Podiatrist Foot & Ankle Surgery | DX: E11.622 Type 2 diabetes mellitus with other skin ulcer (principal); M20.41 Other hammer toe(s) (acquired), right foot; M20.42 Other hammer toe(s) (acquired), left foot; I73.9 Peripheral vascular disease, unspecified | CPT/HCPCS: 99213 ==

== ENCOUNTER 2023-10-07 12:46 | Outpatient (CLI) | payer OTHER, SELFPAY ==
--- NOTE | 2023-10-07 13:00 | MM_ITS ---
WS: [id number] DIAGNOSTIC BILATERAL DIGITAL BREAST TOMOSYNTHESIS MAMMOGRAPHY WITH CAD RIGHT breast ultrasound, limited HISTORY: N63.10 - Unspecified lump in the right breast, unspecifie... COMPARISON: 11/11/2022, 08/23/2021 and 10/02/2018 TECHNIQUE: Bilateral craniocaudad, mediolateral oblique, and mediolateral views are submitted with to mosynthesis and SM. Spot compression RIGHT MLO and CC. Computer aided detection utilized. Breast composition: The breasts are heterogeneously dense, which may obscure small masses. Marker is placed along the upper outer quadrant of the RIGHT breast. There is mild distortion and asymmetry tony r 12:00 axis. This is close to the palpable marker. This area will be further evaluated by ultrasound . The remaining breast contain small calcifications. RIGHT breast ultrasound, limited. There is a small cluster of cysts in the RIGHT breast at 12:00, 3 cm from the nipple. The entire clus ter measures 4 x 6 x 4 mm. There is an additional mildly complex cyst at 12:00, 2 cm the nipple measu ring 0.6 x 0.6 x 0.4 cm. MM/[place] [id number] IMPRESSION: BI-RADS: 2-Benign FOLLOW UP: 1 Year Follow-up Palpable area in the upper outer quadrant of the RIGHT breast corresponds to a small cluster of cysts. No solid mass.
--- NOTE | 2023-10-07 13:30 | US_ITS ---
WS: [id number] DIAGNOSTIC BILATERAL DIGITAL BREAST TOMOSYNTHESIS MAMMOGRAPHY WITH CAD RIGHT breast ultrasound, limited HISTORY: N63.10 - Unspecified lump in the right breast, unspecifie... COMPARISON: 11/11/2022, 08/23/2021 and 10/02/2018 TECHNIQUE: Bilateral craniocaudad, mediolateral oblique, and mediolateral views are submitted with to mosynthesis and SM. Spot compression RIGHT MLO and CC. Computer aided detection utilized. Breast composition: The breasts are heterogeneously dense, which may obscure small masses. Marker is placed along the upper outer quadrant of the RIGHT breast. There is mild distortion and asymmetry tony r 12:00 axis. This is close to the palpable marker. This area will be further evaluated by ultrasound . The remaining breast contain small calcifications. RIGHT breast ultrasound, limited. There is a small cluster of cysts in the RIGHT breast at 12:00, 3 cm from the nipple. The entire clus ter measures 4 x 6 x 4 mm. There is an additional mildly complex cyst at 12:00, 2 cm the nipple measu ring 0.6 x 0.6 x 0.4 cm. US/US breast RT limited* [id number] IMPRESSION: BI-RADS: 2-Benign FOLLOW UP: 1 Year Follow-up Palpable area in the upper outer quadrant of the RIGHT breast corresponds to a small cluster of cysts. No solid mass.
== END 2023-10-07 12:47 | disposition home or self-care (01) ==
LOC: RAD 12:46
PROVIDERS: PCP Family Medicine; Visit Provider Nurse Practitioner Women's Health
DX: N63.12 Unspecified lump in the right breast, upper inner quadrant (principal); R92.333 Mammographic heterogeneous density, bilateral breasts; N64.89 Other specified disorders of breast
CPT/HCPCS: 76642; 77062; G0279

== ENCOUNTER → 2023-12-09 13:59 | Outpatient (BNVA) | payer OTHER, SELFPAY | PROVIDERS: PCP Family Medicine; Visit Provider Family Medicine | DX: R30.0 Dysuria (principal) | CPT/HCPCS: 81000 ==

== ENCOUNTER → 2024-07-13 12:55 | Outpatient (BNVA) | payer MEDICARE, OTHER, SELFPAY | PROVIDERS: PCP Family Medicine; Visit Provider Podiatrist Foot & Ankle Surgery | DX: E11.8 Type 2 diabetes mellitus with unspecified complications (principal); E11.622 Type 2 diabetes mellitus with other skin ulcer | CPT/HCPCS: 99213 ==

== ENCOUNTER 2024-10-07 13:13 | Outpatient (CLI) | payer MEDICARE, OTHER, SELFPAY ==
--- NOTE | 2024-10-07 13:22 | MM_ITS ---
WS: [email or web address] BILATERAL 3D TOMOSYNTHESIS DIGITAL SCREENING MAMMOGRAPHY WITH CAD CLINICAL INFORMATION: SCREENING HISTORY: Screening mammogram. No current complaints. COMPARISON: 2023 TECHNIQUE: Bilateral CC and MLO views. FINDINGS: The breasts are composed of heterogeneous fibroglandular density tissue, which can limit the detection of small underlying mass lesions. No suspicious mass, asymmetry, calcifications, or architectural distortion. No evidence of malignancy. A few incidental punctate calcifications. Biopsy clip LEFT breast. Vascular calcification. MM/MM [facility] tomosynthesis [id number] IMPRESSION: DENSITY: The breasts are heterogeneously dense, which may obscure small masses. BI-RADS: 2 - Benign FOLLOW UP: 1 Year Follow-up Recommend return to annual screening mammography.
== END 2024-10-07 13:14 | disposition home or self-care (01) ==
LOC: RAD 13:14
PROVIDERS: PCP Family Medicine; Visit Provider Nurse Practitioner Women's Health
DX: Z12.31 Encounter for screening mammogram for malignant neoplasm of breast (principal)
CPT/HCPCS: 77063; 77067

== ENCOUNTER → 2024-12-14 16:52 | Outpatient (BNVA) | payer MEDICARE, OTHER, SELFPAY | PROVIDERS: PCP Family Medicine; Visit Provider Nurse Practitioner Women's Health | DX: G47.30 Sleep apnea, unspecified (principal) | CPT/HCPCS: 84443 ==

== ENCOUNTER 2024-12-22 13:02 | Outpatient (CLI) | payer MEDICARE, OTHER, SELFPAY ==
--- NOTE | 2024-12-22 13:30 | XR_ITS ---
WS: [email or web address] SCREENING DEXA SCAN [employer] CLINICAL INFORMATION: Z78.0 - Asymptomatic menopausal state COMPARISON: 2022 FINDINGS: The L1-L4 bone mineral density measures 1.331 g/cm2. This corresponds to a T score score of 1.3 and Z score of 1.8. Left femoral neck bone mineral density measures 1.168 g/cm2. This corresponds to a T score of 1.3 and Z score of 1.7. Right femoral neck bone mineral density measures 1.124 g/cm2. This corresponds to a T score 0.9of and Z score of 1.4. Mean femoral neck bone mineral density measures 1.146 g/cm2. This corresponds to a T score of 1.1 and Z score of 1.5. XR/XR DEXA axial skeleton* [id number] IMPRESSION: Normal bone mineralization. Patient's FRAX calculated 10 year probability for major osteoporotic fracture i s 7.6% and osteoporotic hip fracture is 0.2%. Bone density lumbar spine increased 1.3% Bone density femoral necks increased 0.9%
== END 2024-12-22 13:03 | disposition home or self-care (01) ==
LOC: RAD 13:02
PROVIDERS: PCP Family Medicine; Visit Provider Nurse Practitioner Women's Health
DX: Z13.820 Encounter for screening for osteoporosis (principal); Z78.0 Asymptomatic menopausal state; M85.851 Other specified disorders of bone density and structure, right thigh
CPT/HCPCS: 77080

== ENCOUNTER → 2025-01-11 13:30 | Outpatient (BNVA) | payer MEDICARE, SELFPAY | PROVIDERS: PCP Family Medicine; Visit Provider Podiatrist Foot & Ankle Surgery | DX: M79.671 Pain in right foot (principal); E11.622 Type 2 diabetes mellitus with other skin ulcer; L84 Corns and callosities | CPT/HCPCS: 73630; 99213 ==

== ENCOUNTER → 2025-02-04 13:07 | Outpatient (BNVA) | payer MEDICARE, SELFPAY | PROVIDERS: PCP Family Medicine; Visit Provider Podiatrist Foot & Ankle Surgery | DX: M79.671 Pain in right foot (principal); T84.84XA Pain due to internal orthopedic prosthetic devices, implants and grafts, initial encounter; E11.622 Type 2 diabetes mellitus with other skin ulcer; Y79.2 Prosthetic and other implants, materials and accessory orthopedic devices associated with adverse incidents | CPT/HCPCS: 20680 ==

== ENCOUNTER → 2025-02-14 13:36 | Outpatient (BNVA) | payer MEDICARE, SELFPAY | PROVIDERS: PCP Family Medicine; Visit Provider Podiatrist Foot & Ankle Surgery | DX: E11.622 Type 2 diabetes mellitus with other skin ulcer (principal); T84.84XA Pain due to internal orthopedic prosthetic devices, implants and grafts, initial encounter; Z98.890 Other specified postprocedural states; L84 Corns and callosities; Y79.2 Prosthetic and other implants, materials and accessory orthopedic devices associated with adverse incidents | CPT/HCPCS: 99024 ==